=== PATIENT | female | born 1945 | race Asian ===

== ENCOUNTER 2016-10-12 14:00 | Outpatient (CLI) | payer MEDICARE, OTHER | END 2016-10-12 14:01 | disposition home or self-care (01) | DX: D64.9 Anemia, unspecified (principal); Z79.899 Other long term (current) drug therapy ==

== ENCOUNTER 2016-12-28 07:11 | Day surgery (SDC) | payer MEDICARE, OTHER ==
[2016-12-28] MEDS ORDERED: LACTATED RINGERS 1,000 ML IV ONE ×2 (07:43→10:00)
[2016-12-28] MEDS ORDERED: MIDAZOLAM 2 MG/2 ML VIAL IVP ONE (09:09)
[2016-12-28] MEDS ORDERED: ONDANSETRON 4 MG/2 ML VIAL IVP ONE (09:09)
[2016-12-28] MEDS ORDERED: fentaNYL 250 MCG/5 ML VIAL IVP ONE (09:09)
[2016-12-28] MEDS ORDERED: BENZOCAINE/TETRACAINE/BUTAMBEN SPRAY 56 GM TOP ONE (09:18)
== END 2016-12-28 07:12 | disposition home or self-care (01) ==
PROC: 0DB68ZX Excision of Stomach, Via Natural or Artificial Opening Endoscopic, Diagnostic (ICD-10-PCS; principal; 2016-12-28 08:15)
PROC: 0DJD8ZZ Inspection of Lower Intestinal Tract, Via Natural or Artificial Opening Endoscopic (ICD-10-PCS; 2016-12-28 08:15)
DX: D50.9 Iron deficiency anemia, unspecified (principal); Z90.49 Acquired absence of other specified parts of digestive tract; J38.1 Polyp of vocal cord and larynx; I10 Essential (primary) hypertension; K57.30 Diverticulosis of large intestine without perforation or abscess without bleeding
CPT/HCPCS: 43239; 45378; A9270; J3010; J7120

== ENCOUNTER 2017-01-09 14:23 | Outpatient (CLI) | payer MEDICARE, OTHER | END 2017-01-09 14:24 | disposition home or self-care (01) | DX: D50.9 Iron deficiency anemia, unspecified (principal); E55.9 Vitamin D deficiency, unspecified ==

== ENCOUNTER 2017-11-09 08:00 | Outpatient (CLI) | payer MEDICARE, OTHER ==
[2017-11-09 12:33] LABS: BASOPHILS % (AUTO) 0.8 %; EOSINOPHILS # (AUTO) 0.1 10^3/uL (0.0-0.7); EOSINOPHILS % (AUTO) 1.5 %; HGB - HEMOGLOBIN 13.4 g/dL (12.0-16.0); LYMPHOCYTES # (AUTO) 1.3 10^3/uL (1.5-3.5); LYMPHOCYTES % (AUTO) 26.4 %; MEAN CORPUSCULAR HEMOGLOBIN 30.6 pg (27.0-31.0); MEAN CORPUSCULAR VOLUME 92.9 fL (81.0-99.0); MEAN PLATELET VOLUME 7.7 fL (7.9-10.8); MONOCYTES # (AUTO) 0.3 10^3/uL (0.0-1.0); MONOCYTES % (AUTO) 6.8 %; NEUTROPHILS # (AUTO) 3.2 10^3/uL (1.5-6.6); NEUTROPHILS % (AUTO) 64.5 %; PLT - PLATELET COUNT 308 10^3/uL (130-450); RED BLOOD COUNT 4.38 10^6/uL (4.20-5.40); RED CELL DISTRIBUTION WIDTH 13.7 % (12.0-15.0); WHITE BLOOD COUNT 4.9 x10^3/uL (4.8-10.8)
[2017-11-09 13:14] LABS: THYROID STIMULATING HORMONE 2.48 uIU/mL (0.34-5.60)
[2017-11-09 13:22] LABS: FERRITIN 34.7 ng/mL (11.0-306.8)
[2017-11-09 13:24] LABS: % IRON SATURATION 24 % (20-50); ALBUMIN/GLOBULIN RATIO 1.2 (1.0-2.2); ALKALINE PHOSPHATASE 41 IU/L (42-121); ALT ALANINE AMINOTRANSFERASE 20 IU/L (10-60); AST ASPARTATE AMINOTRANSFERASE 22 IU/L (10-42); BILIRUBIN,TOTAL 0.3 mg/dL (0.2-1.0); BUN - BLOOD UREA NITROGEN 13 mg/dL (6-20); CALCIUM 9.1 mg/dL (8.5-10.3); CARBON DIOXIDE - CO2 27 mmol/L (21-32); CHLORIDE 104 mmol/L (101-111); CREATININE 0.8 mg/dL (0.4-1.0); GFR - MDRD 70 (>89); GLUCOSE 99 mg/dL (70-100); IRON 88 ug/dL (28-170); SODIUM 138 mmol/L (135-145); TOTAL IRON BINDING CAPACITY 364 ug/dL (250-450); TOTAL PROTEIN 7.4 g/dL (6.7-8.2); TRANSFERRIN 260 mg/dL (192-382)
[2017-11-09 13:43] LABS: HB2 TOTAL 14.8 g/dL; HEMOGLOBIN A1C 0.6 g/dL; HEMOGLOBIN A1C % 5.9 % (4.6-6.2)
== END 2017-11-09 08:01 | disposition home or self-care (01) ==
LOC: LAB.WCP 08:00
PROVIDERS: ATTEND Physician Assistant Medical
DX: G60.9 Hereditary and idiopathic neuropathy, unspecified (principal); D64.9 Anemia, unspecified
CPT/HCPCS: 36415; 80053; 82607; 82728; 82746; 83036; 83540; 84207; 84443; 84466; 85025

== ENCOUNTER 2017-12-05 08:16 | Outpatient (CLI) | payer MEDICARE, OTHER ==
--- NOTE | 2017-12-05 12:31 | Ultrasound Report ---
BILATERAL LOWER EXTREMITY VENOUS DUPLEX: 12/05/2017 CLINICAL INDICATION: Varicose veins, peripheral neuropathy. TECHNIQUE: Real-time sonographic vascular imaging was performed by the hide selector through the lower extremities utilizing both color flow and Doppler spectral analysis. Multiple patient portal representative static images were saved for review. FINDINGS: A bilateral lower extremity venous sonogram is performed revealing the common femoral, superficial femoral, profunda femoris, and popliteal veins to be adequately visualized without intraluminal defects. There is normal venous compression, augmentation, phasicity, and spontaneity of venous flow. In the calf, the visualized more cephalad portions of posterior tibial and peroneal veins are grossly compressible, without filling defects. IMPRESSION: NO EVIDENCE OF DEEP VENOUS THROMBOSIS. TD: 12/05/2017 12:30
--- NOTE | 2017-12-05 16:02 | Ultrasound Report ---
BILATERAL LOWER EXTREMITY ARTERIAL DUPLEX: 12/05/2017 CLINICAL INDICATION: Varicose veins, peripheral neuropathy. TECHNIQUE: Real-time sonographic vascular imaging was performed by the heating element repairer through the lower extremities utilizing both color-flow and Doppler spectral analysis. Multiple site safety representative static images were saved for review. RIGHT SIDE SITE PSV WAVEFORM STEN TUBER MACHINE OPERATOR 135 triphasic [] PSFA 112 triphasic [] MSFA 128 triphasic [] DSFA 99 biphasic [] PFA 196 triphasic [] POP 89 biphasic [] ANURAG 77 biphasic [] PICKING CREW SUPERVISOR 63 biphasic [] PER 52 biphasic [] DPA 53 biphasic [] LEFT SIDE SITE PSV WAVEFORM STEN TUBER MACHINE OPERATOR 162 triphasic [] PSFA 120 triphasic [] MSFA 115 triphasic [] DSFA 116 triphasic [] PFA 128 biphasic [] POP 78 triphasic [] ANURAG 94 triphasic [] PICKING CREW SUPERVISOR 62 biphasic [] PER 36 biphasic [] DPA 49 biphasic [] FINDINGS RIGHT LEG: Waveforms are predominantly triphasic in the thigh and biphasic in the calf. There is no evidence of a focal velocity increase to suggest a hemodynamically significant stenosis. LEFT LEG: Waveforms are triphasic to the calf, with biphasic waveforms distally. There is no evidence of a focal velocity increase to suggest a hemodynamically significant stenosis. IMPRESSION: NO EVIDENCE OF HEMODYNAMICALLY SIGNIFICANT ARTERIAL STENOSIS IN EITHER LEG. TD: 12/05/2017 12:33 SP
== END 2017-12-05 08:17 | disposition home or self-care (01) ==
LOC: DI 08:16
PROVIDERS: ATTEND Physician Assistant Medical
DX: I83.90 Asymptomatic varicose veins of unspecified lower extremity (principal); G62.9 Polyneuropathy, unspecified
CPT/HCPCS: 93925; 93970

== ENCOUNTER 2017-12-10 11:19 | Outpatient (CLI) | payer MEDICARE, OTHER ==
--- NOTE | 2017-12-12 09:49 | Mammography Report ---
BILATERAL SCREENING MAMMOGRAM: 12/10/2017 COMPARISON: Comparison mammogram 09/30/2012. INDICATIONS: Screening. TECHNIQUE: Bilateral CC and MLO breast views. FINDINGS: There are scattered fibroglandular densities. There are postoperative changes of the right breast. No dominant mass, architectural distortion, or concerning cluster of microcalcifications is seen. IMPRESSION: 1. BI-RADS 2 - BENIGN FINDINGS. 2. RECOMMEND ANNUAL SCREENING MAMMOGRAM. STANDARD QUALIFYING STATEMENTS: 1. This examination was reviewed with the aid of Computer-Aided Detection (CAD) . 2. A negative or benign imaging report should not delay biopsy if clinically suspicious findings are present. Consider surgical consultation if warranted. More than 5 % of cancers are not identified by imaging. 3. Dense breasts may obscure an underlying neoplasm. TD: 12/12/2017 09:48 SP
== END 2017-12-10 11:20 | disposition home or self-care (01) ==
LOC: DI.N 11:19
PROVIDERS: ATTEND Physician Assistant Medical
DX: Z12.31 Encounter for screening mammogram for malignant neoplasm of breast (principal)
CPT/HCPCS: 77067

== ENCOUNTER 2018-04-08 08:00 | Outpatient (CLI) | payer MEDICARE, OTHER ==
[2018-04-08 12:59] LABS: EOSINOPHILS # (AUTO) 0.1 10^3/uL (0.0-0.7); EOSINOPHILS % (AUTO) 2.2 %; HGB - HEMOGLOBIN 12.7 g/dL (12.0-16.0); LYMPHOCYTES # (AUTO) 1.1 10^3/uL (1.5-3.5); LYMPHOCYTES % (AUTO) 26.2 %; MEAN CORPUSCULAR HEMOGLOBIN 31.4 pg (27.0-31.0); MEAN CORPUSCULAR HGB CONC 32.9 g/dL (32.0-36.0); MEAN CORPUSCULAR VOLUME 95.4 fL (81.0-99.0); MEAN PLATELET VOLUME 7.6 fL (7.9-10.8); MONOCYTES # (AUTO) 0.3 10^3/uL (0.0-1.0); MONOCYTES % (AUTO) 7.8 %; NEUTROPHILS # (AUTO) 2.7 10^3/uL (1.5-6.6); NEUTROPHILS % (AUTO) 62.8 %; PLT - PLATELET COUNT 291 10^3/uL (130-450); RED BLOOD COUNT 4.04 10^6/uL (4.20-5.40); RED CELL DISTRIBUTION WIDTH 13.8 % (12.0-15.0); WHITE BLOOD COUNT 4.3 x10^3/uL (4.8-10.8)
[2018-04-08 13:14] LABS: HB2 TOTAL 13.6 g/dL; HEMOGLOBIN A1C 0.52 g/dL; HEMOGLOBIN A1C % 5.7 % (4.6-6.2)
[2018-04-08 13:39] LABS: % IRON SATURATION 19 % (20-50); ALBUMIN 3.6 g/dL (3.2-5.5); ALKALINE PHOSPHATASE 29 IU/L (42-121); ALT ALANINE AMINOTRANSFERASE 18 IU/L (10-60); AST ASPARTATE AMINOTRANSFERASE 23 IU/L (10-42); BILIRUBIN,TOTAL 0.3 mg/dL (0.2-1.0); BUN - BLOOD UREA NITROGEN 11 mg/dL (6-20); CALCIUM 8.9 mg/dL (8.5-10.3); CARBON DIOXIDE - CO2 26 mmol/L (21-32); CHLORIDE 108 mmol/L (101-111); CHOL/HDL RATIO 2.9 (<4.4); CHOLESTEROL 212 mg/dL; CREATININE 0.7 mg/dL (0.4-1.0); GFR - MDRD 82 (>89); GLUCOSE 106 mg/dL (70-100); HDL CHOLESTEROL 72 mg/dL; IRON 63 ug/dL (28-170); LDL CHOLESTEROL,CALCULATED 117 mg/dL; LDL/HDL RATIO 1.6 (<4.4); SODIUM 140 mmol/L (135-145); TOTAL IRON BINDING CAPACITY 325 ug/dL (250-450); TOTAL PROTEIN 7.2 g/dL (6.7-8.2); TRANSFERRIN 232 mg/dL (192-382); VLDL CHOLESTEROL 23 mg/dL
== END 2018-04-08 08:01 ==
LOC: LAB.WCP 08:00
PROVIDERS: ATTEND Physician Assistant
DX: D50.9 Iron deficiency anemia, unspecified (principal); Z79.899 Other long term (current) drug therapy; M81.0 Age-related osteoporosis without current pathological fracture; E55.9 Vitamin D deficiency, unspecified
CPT/HCPCS: 36415; 80053; 80061; 82306; 83036; 83540; 83721; 84466; 85025

== ENCOUNTER 2018-12-04 09:52 | Outpatient (CLI) | payer MEDICARE, OTHER ==
--- NOTE | 2018-12-05 08:46 | DEXA Report ---
Reason: POSTMENOPAUSAL Procedure Date: 12/04/2018 Accession Number: [id number] / [id number] Procedure: DEX - Dexa Spine and/or Hip CPT Code: FULL RESULT: EXAM: Dexa Spine and/or Hip DATE: 12/04/2018 10:27 AM CLINICAL HISTORY: POSTMENOPAUSAL TECHNIQUE: Dual energy x-ray absorptiometry (DXA) was performed on a [employer]. Regions measured are the AP Spine, femoral neck, and if needed forearm. COMPARISON: None. In accordance with the International Society for Clinical Densitometry (ISCD) guidelines, data from previous exams may be reanalyzed using current recommendations and techniques. This is done to allow a more accurate basis for comparison with the current study. FINDINGS: The data for the lumbar spine is as follows: BMD (g/cm/cm) T-SCORE Z-SCORE REGION L1 0.827 -2.5 -0.9 L2 0.785 -3.5 -1.8 L3 0.941 -2.2 -0.5 L4 0.945 -2.1 -0.5 TOTAL 0.879 -2.5 -0.9 NOTE: All evaluable vertebrae are used for classification The data for the hip is as follows: BMD (g/cm/cm) T-SCORE Z-SCORE REGION Neck 0.850 -1.4 0.5 TOTAL 0.939 -0.5 1.1 NOTE: The femoral neck or total proximal femur, whichever is lowest, is used for classification. IMPRESSION: THE WHO CLASSIFICATION BASED ON THE INTERNATIONAL REFERENCE STANDARD IS OSTEOPOROSIS. THE FRACTURE RISK IS HIGH. RECOMMENDATION: Patients with diagnosis of osteoporosis or osteopenia should have regular bone mineral density assessment. For those eligible for Medicare, routine testing is allowed once every 2 years. Testing frequency can be increased for patients who have rapidly progressing disease or for those who are receiving medical therapy to restore bone mass. COMMENT: World Health Organization (WHO) definitions for osteoporosis and osteopenia: NORMAL BMD: T-score at -1.0 or higher, fracture risk is low OSTEOPENIA BMD: T-score between -1.0 and -2.5, fracture risk is increased. OSTEOPOROSIS BMD: T-score at -2.5 or lower, fracture risk is high. National Osteoporosis Foundation recommends: 1. Obtain adequate dietary calcium (at least 1200 mg per day) and vitamin D (400-800 international units per day). 2. Participate, as appropriate, in regular weightbearing and muscle-strengthening exercise. 3. Avoid tobacco use and reduce alcohol and caffeine intake. 4. For more detailed information see the website at www.NOF.org.
== END 2018-12-04 09:53 | disposition home or self-care (01) ==
LOC: DI 09:52
PROVIDERS: ATTEND Physician Assistant
DX: M81.0 Age-related osteoporosis without current pathological fracture (principal)
CPT/HCPCS: 77080

== ENCOUNTER 2019-02-14 10:02 | Outpatient (CLI) | payer MEDICARE, OTHER ==
--- NOTE | 2019-02-14 13:17 | Mammography Report ---
Reason: SCREENING MAMMO Procedure Date: 02/14/2019 Accession Number: [id number] / [id number] Procedure: MGN - Screening Mammo Dig Bilat CPT Code: FULL RESULT: EXAM: Screening Mammo Dig Bilat DATE: 02/14/2019 10:30 AM CLINICAL HISTORY: Routine screening. No reported personal or family history of breast cancer. History of prior benign right breast biopsy. TECHNIQUE: (B) - Bilateral CC and MLO views were obtained. COMPARISON: 09/30/2012 through 01/31/2010 PARENCHYMAL PATTERN: (D) - The breasts demonstrate heterogeneously dense fibroglandular parenchyma bilaterally. FINDINGS: Right breast: There are stable excisional biopsy changes from the subareolar breast. There is a 7 mm asymmetry of the posterior central 6:00 breast 5 cm from the nipple in the retroglandular fat. No suspicious calcifications or areas of distortion. Left breast: There are no suspicious masses, calcifications, or areas of distortion. IMPRESSION: Right breast: 7 mm asymmetry posterior central 6:00 breast. Incomplete. BI-RADS Category 0. Additional mammographic imaging and possible ultrasound is recommended. Left breast: Negative. BI-RADS Category 1. Recommend annual screening mammography. RECOMMENDATION: (ADDMAM) - Recommend additional mammographic views. Possible ultrasound. BI-RADS CATEGORY: (0) - Incomplete Examination - need additional evaluation. STANDARD QUALIFYING STATEMENTS: 1. This examination was not reviewed with the aid of Computer-Aided Detection (CAD). 2. A negative or benign imaging report should not preclude biopsy if clinically suspicious findings are present. 3. Dense breasts may obscure an underlying neoplasm. 4. This examination was reviewed without the aid of 3D breast imaging (tomosynthesis).
== END 2019-02-14 10:03 | disposition home or self-care (01) ==
LOC: DI.N 10:02
DX: Z12.31 Encounter for screening mammogram for malignant neoplasm of breast (principal); R92.8 Other abnormal and inconclusive findings on diagnostic imaging of breast
CPT/HCPCS: 77067

== ENCOUNTER 2019-03-05 12:28 | Outpatient (CLI) | payer MEDICARE, OTHER ==
--- NOTE | 2019-03-05 14:14 | Mammography Report ---
Reason: ABNORMAL MAMMOGRAM Procedure Date: 03/05/2019 Accession Number: [id number] / [id number] Procedure: MATTI - Diag Special Views Dig RT CPT Code: FULL RESULT: EXAM: Diag Special Views Dig RT DATE: 03/05/2019 1:04 PM CLINICAL HISTORY: Diagnostic examination. The patient is recalled from screening for a right breast 7 mm asymmetry at 6:00 5 cm from the nipple. TECHNIQUE: (R) - Right right ML, MLO, spot ML and spot CC images are obtained. COMPARISON: 02/14/2019 through 01/31/2010. PARENCHYMAL PATTERN: (D) - The breast(s) demonstrate(s) heterogeneously dense fibroglandular parenchyma. FINDINGS: The asymmetry is not replicated on ML or MLO views and no nodule is found on tomographic images. The previous finding is identified on the spot CC view with an appearance most consistent with normal breast tissue. Post excisional changes are again stable. There are no suspicious masses, calcifications, or areas of distortion. IMPRESSION: Benign findings. BI-RADS category 2. RECOMMENDATION: (ANNUAL) - Recommend routine annual screening mammography. BI-RADS CATEGORY: (2) - Benign Findings. STANDARD QUALIFYING STATEMENTS: 1. This examination was not reviewed with the aid of Computer-Aided Detection (CAD). 2. A negative or benign imaging report should not preclude biopsy if clinically suspicious findings are present. 3. Dense breasts may obscure an underlying neoplasm. 4. This examination was reviewed with the aid of 3D breast imaging (tomosynthesis).
== END 2019-03-05 12:29 | disposition home or self-care (01) ==
LOC: DI 12:28
PROVIDERS: ATTEND Physician Assistant
DX: R92.8 Other abnormal and inconclusive findings on diagnostic imaging of breast (principal)

== ENCOUNTER 2019-06-06 09:00 | Outpatient (CLI) | payer MEDICARE, OTHER ==
[2019-06-06 18:35] LABS: BASOPHILS # (AUTO) 0.1 10^3/uL (0.0-0.1); EOSINOPHILS # (AUTO) 0.1 10^3/uL (0.0-0.7); EOSINOPHILS % (AUTO) 1.9 %; HGB - HEMOGLOBIN 13.2 g/dL (12.0-16.0); LYMPHOCYTES # (AUTO) 1.5 10^3/uL (1.5-3.5); LYMPHOCYTES % (AUTO) 28.4 %; MEAN CORPUSCULAR HEMOGLOBIN 30.3 pg (27.0-31.0); MEAN CORPUSCULAR HGB CONC 30.9 g/dL (32.0-36.0); MEAN CORPUSCULAR VOLUME 97.9 fL (81.0-99.0); MEAN PLATELET VOLUME 10.6 fL (7.9-10.8); MONOCYTES # (AUTO) 0.3 10^3/uL (0.0-1.0); MONOCYTES % (AUTO) 6.2 %; NEUTROPHILS # (AUTO) 3.2 10^3/uL (1.5-6.6); NEUTROPHILS % (AUTO) 62.1 %; PLT - PLATELET COUNT 294 10^3/uL (130-450); RED BLOOD COUNT 4.36 10^6/uL (4.20-5.40); WHITE BLOOD COUNT 5.1 x10^3/uL (4.8-10.8)
[2019-06-06 18:55] LABS: ALBUMIN 3.9 g/dL (3.2-5.5); ALBUMIN/GLOBULIN RATIO 1.1 (1.0-2.2); BILIRUBIN,TOTAL 0.5 mg/dL (0.2-1.0); CALCIUM 8.8 mg/dL (8.5-10.3); CREATININE 0.8 mg/dL (0.4-1.0); TOTAL PROTEIN 7.4 g/dL (6.7-8.2)
[2019-06-09 17:48] LABS: HB2 TOTAL 13.8 g/dL; HEMOGLOBIN A1C 0.61 g/dL; HEMOGLOBIN A1C % 6.2 % (4.6-6.2)
== END 2019-06-06 23:59 | disposition home or self-care (01) ==
LOC: LAB.WCP 09:00
PROVIDERS: ATTEND Physician Assistant
DX: I10 Essential (primary) hypertension (principal); R73.9 Hyperglycemia, unspecified
CPT/HCPCS: 36415; 80053; 83036; 85025

== ENCOUNTER 2020-11-01 14:12 | Outpatient (CLI) | payer MEDICARE, OTHER ==
--- NOTE | 2020-11-01 15:17 | XRAY Report ---
PROCEDURE: Hand 3 View BILAT INDICATIONS: FINGER DEFORMITY TECHNIQUE: 3 views of the hand(s) bilaterally were acquired. COMPARISON: Contralateral hands but no prior study. FINDINGS: Bones: No fractures or dislocations. Note is made of distal inner phalangeal degenerative osteoarth ritic change which is mild to moderate in severity at the left hand. At the right and the degenerativ e changes are more pronounced, and most pronounced at the third distal inner phalangeal joint where e rosive osteoarthritic change appears present, with morphologic distortion of the articular surfaces r esulting in a valgus morphology at the distal interphalangeal joint. There is a similar but significa ntly less degree of valgus morphologic anomaly at the second distal inner phalangeal joint on the rig ht. No suspicious bony lesions. Soft tissues: No suspicious soft tissue calcifications. IMPRESSION: The osteoarthritic changes present are conventional on the left but show progression to erosive osteo arthritis at the right second and third distal interphalangeal joints as discussed. Inflammatory arth ritis such as psoriatic arthritis or gout is not suspected at this time. Reviewed by: Vincenzo Pineda MD on 11/01/2020 3:15 PM PST Approved by: Vincenzo Pineda MD on 11/01/2020 3:15 PM PST Station ID: [id number]
== END 2020-11-02 23:59 | disposition home or self-care (01) ==
LOC: DI.WCP 14:12
PROVIDERS: ATTEND Family Medicine
DX: M15.4 Erosive (osteo)arthritis (principal)
CPT/HCPCS: 36415; 80053; 84443; 85025; 85651; 86038; 86140

== ENCOUNTER 2020-11-18 08:00 | Outpatient (CLI) | payer MEDICARE, OTHER ==
[2020-11-18 13:09] LABS: BASOPHILS # (AUTO) 0.1 10^3/uL (0.0-0.1); EOSINOPHILS # (AUTO) 0.1 10^3/uL (0.0-0.7); EOSINOPHILS % (AUTO) 2.1 %; HGB - HEMOGLOBIN 12.5 g/dL (12.0-16.0); LYMPHOCYTES % (AUTO) 32.2 %; MEAN CORPUSCULAR HEMOGLOBIN 29.6 pg (27.0-31.0); MEAN CORPUSCULAR HGB CONC 30.8 g/dL (32.0-36.0); MEAN CORPUSCULAR VOLUME 96.2 fL (81.0-99.0); MEAN PLATELET VOLUME 10.1 fL (7.9-10.8); MONOCYTES # (AUTO) 0.4 10^3/uL (0.0-1.0); MONOCYTES % (AUTO) 6.4 %; NEUTROPHILS # (AUTO) 3.5 10^3/uL (1.5-6.6); PLT - PLATELET COUNT 328 10^3/uL (130-450); RED BLOOD COUNT 4.22 10^6/uL (4.20-5.40); RED CELL DISTRIBUTION WIDTH 13.3 % (12.0-15.0); WHITE BLOOD COUNT 6.1 x10^3/uL (4.8-10.8)
[2020-11-18 14:02] LABS: ALBUMIN 4.1 g/dL (3.2-5.5); ALBUMIN/GLOBULIN RATIO 1.1 (1.0-2.2); ALKALINE PHOSPHATASE 42 IU/L (42-121); ALT ALANINE AMINOTRANSFERASE 20 IU/L (10-60); AST ASPARTATE AMINOTRANSFERASE 20 IU/L (10-42); BILIRUBIN,TOTAL 0.6 mg/dL (0.2-1.0); BUN - BLOOD UREA NITROGEN 13 mg/dL (6-20); CALCIUM 9.1 mg/dL (8.5-10.3); CARBON DIOXIDE - CO2 26 mmol/L (21-32); CHLORIDE 103 mmol/L (101-111); CREATININE 0.7 mg/dL (0.4-1.0); GLUCOSE 107 mg/dL (70-100); TOTAL PROTEIN 7.7 g/dL (6.7-8.2)
[2020-11-18 14:28] LABS: CRP - C-REACTIVE PROTEIN < 1.0 mg/dL (0-1.0)
[2020-11-20 10:21] LABS: ANA SCREEN NEGATIVE (NEGATIVE)
== END 2020-11-18 23:59 | disposition home or self-care (01) ==
LOC: LAB.WCP 08:00
PROVIDERS: ATTEND Family Medicine
DX: D64.9 Anemia, unspecified (principal); R73.9 Hyperglycemia, unspecified; Z86.39 Personal history of other endocrine, nutritional and metabolic disease; M20.009 Unspecified deformity of unspecified finger(s)
CPT/HCPCS: 36415; 80053; 84443; 85025; 85651; 86038; 86140

== ENCOUNTER 2021-12-06 08:54 | Outpatient (CLI) | payer MEDICARE, OTHER ==
[2021-12-06 12:27] LABS: BILIRUBIN,URINE NEGATIVE (NEGATIVE); GLUCOSE, URINE (UA) NEGATIVE (NEGATIVE); KETONES,URINE (UA) NEGATIVE (NEGATIVE); LEUKOCYTE ESTERASE, URINE NEGATIVE (NEGATIVE); NITRITE,URINE NEGATIVE (NEGATIVE); OCCULT BLOOD,URINE TRACE-INTA (NEGATIVE); PROTEIN,URINE NEGATIVE (NEGATIVE); UROBILINOGEN,URINE 0.2 (NORMAL) E.U./dL (NORMAL)
[2021-12-06 12:32] LABS: CLARITY,URINE HAZY (CLEAR)
[2021-12-06 12:40] LABS: BASOPHILS % (AUTO) 0.6 %; EOSINOPHILS # (AUTO) 0.1 10^3/uL (0.0-0.7); HCT - HEMATOCRIT 41.3 % (37.0-47.0); HGB - HEMOGLOBIN 13.5 g/dL (12.0-16.0); LYMPHOCYTES # (AUTO) 1.6 10^3/uL (1.5-3.5); LYMPHOCYTES % (AUTO) 23.7 %; MEAN CORPUSCULAR HGB CONC 32.7 g/dL (32.0-36.0); MEAN CORPUSCULAR VOLUME 94.7 fL (81.0-99.0); MEAN PLATELET VOLUME 9.9 fL (7.9-10.8); MONOCYTES # (AUTO) 0.4 10^3/uL (0.0-1.0); MONOCYTES % (AUTO) 6.7 %; NEUTROPHILS # (AUTO) 4.4 10^3/uL (1.5-6.6); NEUTROPHILS % (AUTO) 66.7 %; PLT - PLATELET COUNT 294 10^3/uL (130-450); RED BLOOD COUNT 4.36 10^6/uL (4.20-5.40); RED CELL DISTRIBUTION WIDTH 12.9 % (12.0-15.0); WHITE BLOOD COUNT 6.5 x10^3/uL (4.8-10.8)
[2021-12-06 12:41] LABS: T4 (THYROXINE) 6.49 ug/dL (6.09-12.23)
[2021-12-06 12:44] LABS: THYROID STIMULATING HORMONE 3.22 uIU/mL (0.34-5.60)
[2021-12-06 12:50] LABS: FERRITIN 14.5 ng/mL (11.0-306.8)
[2021-12-06 13:03] LABS: % IRON SATURATION 29 % (20-50); ALBUMIN 4.1 g/dL (3.2-5.5); ALBUMIN/GLOBULIN RATIO 1.2 (1.0-2.2); ALKALINE PHOSPHATASE 41 IU/L (42-121); ALT ALANINE AMINOTRANSFERASE 18 IU/L (10-60); AST ASPARTATE AMINOTRANSFERASE 20 IU/L (10-42); BILIRUBIN,TOTAL 0.5 mg/dL (0.2-1.0); BUN - BLOOD UREA NITROGEN 21 mg/dL (6-20); CALCIUM 9.1 mg/dL (8.5-10.3); CARBON DIOXIDE - CO2 25 mmol/L (21-32); CHLORIDE 105 mmol/L (101-111); CHOL/HDL RATIO 3.1 (<4.4); CHOLESTEROL 258 mg/dL; CREATININE 0.9 mg/dL (0.4-1.0); CRP - C-REACTIVE PROTEIN < 1.0 mg/dL (0-1.0); GFR - MDRD 61 (>89); GLUCOSE 111 mg/dL (70-100); HDL CHOLESTEROL 83 mg/dL; IRON 119 ug/dL (28-170); LDL CHOLESTEROL,CALCULATED 156 mg/dL; LDL/HDL RATIO 1.9 (<4.4); POTASSIUM 4.1 mmol/L (3.5-5.0); SODIUM 138 mmol/L (135-145); TOTAL IRON BINDING CAPACITY 414 ug/dL (250-450); TOTAL PROTEIN 7.5 g/dL (6.7-8.2); TRANSFERRIN 296 mg/dL (192-382); TRIGLYCERIDES 96 mg/dL; VLDL CHOLESTEROL 19 mg/dL
[2021-12-06 13:12] LABS: BACTERIA,URINE None Seen /HPF (None Seen); SQUAMOUS EPITHELIAL CELL,UR NONE SEEN (<= Few); WBC,URINE 0-3 /HPF (0-5)
[2021-12-06 13:50] LABS: RHEUMATOID FACTOR NEGATIVE (Negative)
[2021-12-08 11:21] LABS: ANA SCREEN NEGATIVE (NEGATIVE)
== END 2021-12-06 08:55 | disposition home or self-care (01) ==
LOC: LAB.N 08:54
PROVIDERS: ATTEND Nurse Practitioner
DX: D50.9 Iron deficiency anemia, unspecified (principal); R53.83 Other fatigue; M20.001 Unspecified deformity of right finger(s)
CPT/HCPCS: 36415; 80053; 80061; 81001; 82607; 82728; 83540; 83721; 84436; 84443; 84466; 84550; 85025; 85651; 86038; 86140; 86200; 86430; 87086

== ENCOUNTER 2022-01-16 08:25 | Outpatient (CLI) | payer MEDICARE, OTHER ==
[2022-01-16 13:50] LABS: BILIRUBIN,URINE NEGATIVE (NEGATIVE); CLARITY,URINE CLEAR (CLEAR); GLUCOSE, URINE (UA) NEGATIVE (NEGATIVE); KETONES,URINE (UA) NEGATIVE (NEGATIVE); LEUKOCYTE ESTERASE, URINE NEGATIVE (NEGATIVE); NITRITE,URINE NEGATIVE (NEGATIVE); OCCULT BLOOD,URINE NEGATIVE (NEGATIVE); PROTEIN,URINE NEGATIVE (NEGATIVE); UROBILINOGEN,URINE 0.2 (NORMAL) E.U./dL (NORMAL)
[2022-01-16 14:01] LABS: RBC,URINE 0-5 /HPF (0-5); SQUAMOUS EPITHELIAL CELL,UR RARE Squamous (<= Few); WBC,URINE 0-3 /HPF (0-5)
[2022-01-16 14:02] LABS: BACTERIA,URINE Rare /HPF (None Seen)
== END 2022-01-16 08:26 | disposition home or self-care (01) ==
LOC: LAB.N 08:25
PROVIDERS: ATTEND Nurse Practitioner
DX: R31.9 Hematuria, unspecified (principal)
CPT/HCPCS: 81001; 87086

== ENCOUNTER 2022-12-19 14:58 | Outpatient (CLI) | payer MEDICARE, OTHER ==
--- NOTE | 2022-12-19 16:37 | XRAY Report ---
PROCEDURE: Lumbar Spine 2 View INDICATIONS: BACK PAIN,LUMBAR TECHNIQUE: 5 views of the lumbar spine were acquired. COMPARISON: None. FINDINGS: Bones: 5 [id number] vertebrae are present. Slight rightward curvature. Grade 1 anterolisthesis of L4 on L5. Mild disc height loss at all levels. Facet arthrosis L3-S1. Soft tissues: Overlying bowel gas pattern is normal. No suspicious soft tissue calcifications. IMPRESSION: 1.Mild, multilevel degenerative disc disease and moderate facet arthrosis at L3-S1. 2.Grade 1 anterolisthesis of L4 on L5, secondary to facet arthrosis. Reviewed by: Tyson Smith on 12/19/2022 4:35 PM PDT Approved by: Tyson Smith on 12/19/2022 4:35 PM PDT Station ID: [id number]
--- NOTE | 2022-12-19 16:39 | XRAY Report ---
PROCEDURE: Hips 2V BILAT INDICATIONS: HIP PAIN, BILATERAL, BACK PAIN, SACROILIAC TECHNIQUE: 2 views of the hips were acquired. COMPARISON: None FINDINGS: Bones: No fractures or dislocations. No suspicious bony lesions. The visualized pelvic ring appear s intact. Mild nonuniform joint space. No osteophytosis. Soft tissues: No suspicious soft tissue calcifications or masses. IMPRESSION: Mild bilateral hip osteoarthritis. Reviewed by: Tyson Smith on 12/19/2022 4:38 PM PDT Approved by: Tyson Smith on 12/19/2022 4:38 PM PDT Station ID: [id number]
== END 2022-12-19 14:59 | disposition home or self-care (01) ==
LOC: DI 14:58
PROVIDERS: ATTEND Family Medicine
DX: M16.0 Bilateral primary osteoarthritis of hip (principal); M43.16 Spondylolisthesis, lumbar region; M47.817 Spondylosis without myelopathy or radiculopathy, lumbosacral region; M51.37 Other intervertebral disc degeneration, lumbosacral region

== ENCOUNTER 2023-02-05 15:01 | Outpatient (CLI) | payer MEDICARE, OTHER ==
--- NOTE | 2023-02-05 23:07 | XRAY Report ---
PROCEDURE: Hand 3 View RT INDICATIONS: LOCALIZED SWELLING ON HAND, RIGHT TECHNIQUE: 3 views of the hand(s) acquired. COMPARISON: None. FINDINGS: Bones: No acute fracture. Severe polyarticular arthritic changes throughout the interphalangeal join ts and first MCP joint including severe and often asymmetric joint space loss, subcortical sclerosis, and prominent marginal spurring, osseous remodeling, and mild/moderate subluxation. This is most sev ere at the second through fourth DIP joints where there are periarticular lucencies in addition. Soft tissues: The lateral film demonstrates prominent dorsal soft tissue thickening and swelling ove r the metacarpal head regions. No radiodense foreign body or suspicious calcification. There is chond rocalcinosis seen at the distal ulna. IMPRESSION: No radiographic abnormality underlying the area of dorsal soft tissue swelling in the hand. Background of severe erosive osteoarthritic change. Reviewed by: Marilyn Ambrocio MD on 02/05/2023 11:05 PM PDT Approved by: Marilyn Ambrocio MD on 02/05/2023 11:05 PM PDT Station ID: [id number]
== END 2023-02-05 15:02 | disposition home or self-care (01) ==
LOC: DI 15:01
PROVIDERS: ATTEND Family Medicine
DX: M15.4 Erosive (osteo)arthritis (principal)